=== PATIENT | male | born 1975 | race Caucasian/White ===

== ENCOUNTER 2018-11-24 07:48 | Day surgery (SDC) | payer OTHER ==
[~2018-11-24] VITALS: Ht 172.7 cm; Wt 86.2 kg
[~2018-11-24 07:48] MED LIST: HYDROmorphone 2 MG/ML VIAL IV PRN; IV RINGERS,LACTATED 1000ML 1,000 ML IV SCH; LIDOCAINE 1% PF 2 ML VIAL. ID PRN; MORPHINE SULFATE 4 MG/ML VIAL. IV PRN; ONDANSETRON PF 4 MG/2 ML VIAL. IV PRN; PROCHLORPERAZINE 10 MG/2 ML VIAL. IV PRN; fentaNYL PF VIAL 100 MCG/2 ML VIAL IV PRN
[2018-11-24] MEDS ORDERED: LIDOCAINE 2% PF 5 ML VIAL. ONE (08:41)
[2018-11-24] MEDS ORDERED: MIDAZOLAM HCL/PF 2 MG/2 ML VIAL. ONE (08:41)
[2018-11-24] MEDS ORDERED: DEXAMETHASONE SOD PHOS 20 MG/5 ML VIAL. ONE (08:41)
[2018-11-24] MEDS ORDERED: PROPOFOL 20 ML IV ONE (08:41)
[2018-11-24] MEDS ORDERED: ONDANSETRON PF 4 MG/2 ML VIAL. ONE (08:41)
[2018-11-24] MEDS ORDERED: fentaNYL PF VIAL 100 MCG/2 ML VIAL ONE (08:41)
[2018-11-24] MEDS ORDERED: EPINEPHrine VIAL 30 MG/30 ML VIAL ONE (09:52)
[2018-11-24] MEDS ORDERED: BUPIVAC MPF-EPI 0.5%-1:200000 30 ML VIAL. ONE (09:52)
--- NOTE | 2018-11-24 10:19 | DISCH ---
DISCHARGE INSTRUCTIONS Condition on Discharge Condition on Discharge: Stable Activity After Discharge Activity Instructions for Disc: Activity as tolerated Weight Bearing Status after Di: As tolerated Diet after Discharge Diet after Discharge: Regular Wound Incision Care Wound/Incision Care: Change dressing (remove dressing in 2 days may then shower ) Contacting the DRJanak after DC Call your doctor for: Concerns you may have Follow-Up Follow up with: Dwaine 10 days JAZLYN HERNANDEZ MD Nov 24, 2018 10:19
[2018-11-24] MEDS ORDERED: TRAM50TA PO (10:21)
[2018-11-24] MEDS ORDERED: SEVOFLURANE 31 TO 60 MINUTES. IH ONE (10:38)
--- NOTE | 2018-11-24 10:48 | PDOC4 ---
Operative Note Operative Note Date of surgery: 11/24/2018 Preoperative diagnosis: Medial meniscus tear right knee Postoperative diagnosis: Same Operative procedure: Right knee arthroscopy partial medial meniscectomy Surgeon: Dwaine Anesthesia: Gen. Estimated blood loss: 5 mL Complications: None Operative indications: Clay is a 43-year-old male that is incarcerated and remotely had a knee injury and arthroscopy as a teenager. Recently is documented in his clinical notes has had sharp stabbing intermittent medial knee pain worsened by Arnaldo's testing and MRI confirmatory of medial meniscus tear. I had gone over with him the structure and function of the meniscus the rationale for operative treatment the risks benefits postoperative course of surgery including the possibility of continued pain infection blood clots nerve or blood vessel damage among others all his questions were answered he wishes to proceed with surgical evaluation and treatment. Operative text: Patient was identified procedure verified patient placed in the supine position on the operative table. After adequate amounts of general anesthesia were administered a thigh tourniquet was placed in the right lower extremity was prepped and draped in standard sterile fashion. After timeout was performed patient procedure identified and verified the right lower extremity was exsanguinated by Esmarch bandage tourniquet inflated to 250 mollies mercury a lateral portal was established a medial portal established using spinal needle localization and the knee joint was systematically examined. He was found to have a displaceable tear posterior horn of medial meniscus no loose bodies were noted in the gutters or suprapatellar pouch ACL was probed and found to be intact as was the lateral meniscus cartilage in the medial and lateral compartments as well as patellofemoral were in good condition with minimal chondromalacia he had good patellofemoral tracking. The tear was debrided back to stable tissue and radiused appropriately using arthroscopic punch and shaver. The knee was again toured to ensure no loose cartilaginous bodies or other abnormalities was drained of arthroscopic fluid portals closed with nylon suture sterile dressings were applied patient was returned recovery room in stable condition having tolerated procedure well JAZLYN HERNANDEZ MD Nov 24, 2018 10:48
[2018-11-24] MEDS ORDERED: traMADol 50 MG TABLET PO ONE (11:30)
[2018-11-24 11:35] VITALS: BP 110/66
== END 2018-11-24 11:55 | disposition home or self-care (01) ==
LOC: SURG 07:48 → EEVIPCON 07:48 → SURG 11:55
PROVIDERS: ATTEND Orthopaedic Surgery
DX: S83.241A Other tear of medial meniscus, current injury, right knee, initial encounter (principal); Z98.890 Other specified postprocedural states; Z79.899 Other long term (current) drug therapy; X58.XXXA Exposure to other specified factors, initial encounter; Y93.89 Activity, other specified; Y92.89 Other specified places as the place of occurrence of the external cause; Y99.8 Other external cause status
CPT/HCPCS: 29881; A7015; C1782; J0696; J1100; J2001; J2250; J2405; J2704; J3010; J3490; J0171